=== PATIENT | male | born 1955 | race Caucasian/White ===

== ENCOUNTER → 2017-12-24 | Day surgery (SDC) | payer BC, OTHER ==
[~2017-12-24] MED LIST: ALPR0.25 PO; FINA5TAB4 PO; GARL1CAP PO; IV RINGERS,LACTATED 1000ML 1,000 ML IV SCH; PROPOFOL 40 ML IV ONE; SELE200T10 PO; UBID30CA9 PO; VENL75CA PO; ZOLP5TAB PO
[2017-12-24 16:48] VITALS: BP 117/65
--- NOTE | 2017-12-25 07:37 | CONS ---
DATE OF CONSULTATION: 12/24/2017 GASTROINTESTINAL CONSULTATION REASON FOR CONSULTATION: Dysphagia and colorectal screening. HISTORY OF PRESENT ILLNESS: This is a 62-year-old male who is seen with dysphagia intermittently for solids in the upper esophageal region. Has noted no heartburn, does not use alcohol, tobacco or caffeine in excess. There is no change in his weight. Intermittently food gets stuck requiring disimpaction. He emergency room several times this year, today for further evaluation. In addition, he requests colorectal screen, has undergone previous colon examination. There is no family history, no melena, no hematochezia, no diarrhea, no constipation, and no change in weight. He is otherwise without additional complaints. PAST MEDICAL HISTORY: Osteoarthrosis. MEDICATIONS: Include Effexor, Ambien, finasteride, garlic, alprazolam. ALLERGIES: None. SOCIAL HISTORY: He is nonsmoker, nondrinker. FAMILY HISTORY: Noncontributory. REVIEW OF SYSTEMS: Per records. PHYSICAL EXAMINATION: GENERAL: Reveals a well-nourished, well-developed male who is alert, cooperative, in no acute distress. VITAL SIGNS: Temperature 98.4, pulse 91, respirations 16. HEENT: Normocephalic and atraumatic. Pupils and extraocular muscles are not tested. Sclerae anicteric. NECK: Supple. LUNGS: Clear. CARDIOVASCULAR: Reveals S1, S2 DICTATION ENDS HERE ZION ONTIVEROS MD DR: MODESTO/nolan JOB#: [id number] / [id number]
== END | disposition home or self-care (01) ==
LOC: SURG 15:08
PROVIDERS: ATTEND Internal Medicine Gastroenterology
DX: Z12.11 Encounter for screening for malignant neoplasm of colon (principal); K57.30 Diverticulosis of large intestine without perforation or abscess without bleeding; K64.0 First degree hemorrhoids; K22.2 Esophageal obstruction; M19.90 Unspecified osteoarthritis, unspecified site; I10 Essential (primary) hypertension; G47.33 Obstructive sleep apnea (adult) (pediatric); E78.5 Hyperlipidemia, unspecified; H40.9 Unspecified glaucoma; Z85.828 Personal history of other malignant neoplasm of skin; N40.0 Benign prostatic hyperplasia without lower urinary tract symptoms; Z98.890 Other specified postprocedural states; Z79.899 Other long term (current) drug therapy
CPT/HCPCS: 43235; 43450; 45378; J2704